=== PATIENT | male | born 1965 | race Two or more races ===

== ENCOUNTER 2022-12-07 15:20 | Emergency (ER) | payer MEDICAID ==
[~2022-12-07] VITALS: Ht 167.6 cm; Wt 79.4 kg
--- NOTE | 2022-12-07 16:05 | NUR ---
PT BIB SON AWAKE AND ALERT AOX4, NO SOB OR DISTRESS. PT C/O PAIN TO R FOREARM AND MID BACK. PT STATED HE HAD A MECH FALL 3 DAYS AGO AT HOME. PT DENIES N/V. PT DENIES HITTING HIS HEAD. PT STATES PAIN 11/18. PT DENIES HX AND SX.
--- NOTE | 2022-12-07 16:10 | NUR ---
MD DR BOLIVAR AT BEDSIDE
[2022-12-07 16:17] VITALS: BP_SYST 134; PULSE 85; RESP 17; TEMP 97.3; O2SAT 98
--- NOTE | 2022-12-07 18:00 | NUR ---
Patient given written and verbal discharge instructions and verbalizes understanding. ER MD DR MCCORMICK discussed with patient the results and treatment provided. Patient in stable condition. ID arm band removed. Rx of NORCO, MOTRIN given. Patient educated on pain management and to follow up with PMD. Pain Scale 6/10 . Opportunity for questions provided and answered. Medication side effect fact sheet provided.
[2022-12-07] MEDS ORDERED: HYDR-3927 PO (18:30)
[2022-12-07] MEDS ORDERED: IBUP-1971 PO (18:30)
--- NOTE | 2022-12-07 18:55 | NUR ---
discussed all results and findings with patient and son at bedside including negative X-ray discussed dx of contusion, gave RICE recomemndations given ice pack and min wrap given copies of xR results REturn precautiosn given. F/u with PCP. Rx of norco and ibuprofen reviewed Discharged home
[2022-12-07 19:14] VITALS: BP_SYST 135; PULSE 74; RESP 18; TEMP 97.3; O2SAT 98
== END 2022-12-07 18:00 | disposition home or self-care (01) ==
LOC: SED 15:20
DX: S29.012A Strain of muscle and tendon of back wall of thorax, initial encounter (principal); S50.11XA Contusion of right forearm, initial encounter; Z79.899 Other long term (current) drug therapy; W19.XXXA Unspecified fall, initial encounter; Y93.89 Activity, other specified; Y92.89 Other specified places as the place of occurrence of the external cause; Y99.8 Other external cause status
CPT/HCPCS: 72072-TC; 73090; 99284